=== PATIENT | female | born 1950 | race African-American/Black ===

== ENCOUNTER 2016-05-30 17:24 | Observation (INO) | payer OTHER ==
[~2016-05-30] VITALS: Ht 160 cm; Wt 95.7 kg
[~2016-05-30 17:24] MED LIST: AMLODIPINE BESYL5 MG PO; ATORVASTATIN CA40 MG PO; FLEXERIL10 MG PO; FLUOXETINE HCL20 MG PO; GUMMI BEAR MUL1 EACH PO; HORIZANT600 MG PO; MORPHINE SULFAT15 M1 PO; Maxzide 25 PO; NABUMETONE750 MG PO; NAPROXEN375 M1 PO; NORVASC5 MG PO; Norvasc PO; PERCOCET 5/31 TABLET PO; PRAVACHOL80 MG PO; PROzac PO; Percocet 5/325,Endoc PO; Pravachol PO; RANITIDINE HCL150 MG PO; Relafen PO; TIZANIDINE HCL4 M1 PO; TRAMADOL HCL50 MG PO; TRIAMTERENE-HC1 EACH PO; TRIAMTERENE/HCTZ PO; VISINE15 ML BOTH EYES; VOLTAREN75 MG PO
[2016-05-30 18:10] LABS: HEMATOCRIT 39.2 % (36.0-46.0); MCH 30.5 PG (29.0-34.0); MCHC 32.4 G/DL (30.0-36.0); MEAN PLAT.VOLUME 9.3 uM^3 (9.5-12.4); PLATELET COUNT 287 K/uL (156-360); RBC DIS.WIDTH-CV 14.6 % (11.8-14.6); RBC DIS.WIDTH-SD 50.7 % (39-53); RED BLOOD COUNT 4.17 M/uL (3.80-5.20); WHITE BLOOD COUNT 4.7 K/uL (4.1-10.2)
[2016-05-30 18:20] LABS: CHLORIDE 104 mEq/L (99-109); POTASSIUM 3.7 mEq/L (3.7-5.4); SODIUM 139 mEq/L (136-147)
[2016-05-30 18:22] LABS: GLUCOSE 92 mg/dL (70-99)
[2016-05-30 18:24] LABS: ANION GAP 10 MEQ/L (2-14)
[2016-05-30 18:26] LABS: GFR ESTIMATE (CALCULATED) > 59 mL/min/
[2016-05-30 18:27] LABS: UREA NITROGEN (BUN) 18 mg/dL (9-23)
[2016-05-30 18:31] LABS: TROP-I INTERPRETATION NEGATIVE; TROPONIN-I < 0.01 ng/mL (0.0-0.30)
[2016-05-30] MEDS ORDERED: GABAPENTIN800 MG PO (22:14)
[2016-05-30] MEDS ORDERED: MELOXICAM15 MG PO (22:18)
[2016-05-30] MEDS ORDERED: METHOCARBAMOL750 MG PO (22:18)
[2016-05-30 23:12] VITALS: BP 127/63
[2016-05-31 01:11] LABS: TROP-I INTERPRETATION NEGATIVE; TROPONIN-I < 0.01 ng/mL (0.0-0.30)
[2016-05-31 03:48] VITALS: BP 109/56
[2016-05-31 07:07] LABS: TROP-I INTERPRETATION NEGATIVE; TROPONIN-I < 0.01 ng/mL (0.0-0.30)
[2016-05-31 08:24] VITALS: BP 134/73
[2016-05-31 11:41] VITALS: BP 120/55
[2016-05-31] MEDS ORDERED: PANTOPRAZOLE SO40 MG PO (15:00)
== END 2016-05-31 15:55 | disposition home or self-care (01) ==
LOC: EME 17:24 → EDOF 21:50 → 5WEST 21:50
PROVIDERS: Family Medicine
DX: R07.89 Other chest pain (principal); R10.13 Epigastric pain; I49.3 Ventricular premature depolarization; I10 Essential (primary) hypertension; E78.5 Hyperlipidemia, unspecified; G89.29 Other chronic pain; F41.9 Anxiety disorder, unspecified; F32.9 Major depressive disorder, single episode, unspecified; E66.9 Obesity, unspecified; F17.200 Nicotine dependence, unspecified, uncomplicated
CPT/HCPCS: 71020; 80048; 84484; 85027; 93005; 99281; 99285; G0378; J1650; J2270; J2405; J2765